=== PATIENT | male | born 1980 ===

== ENCOUNTER 2023-03-22 18:54 | Emergency (ER) | payer SELFPAY ==
--- NOTE | 2023-03-22 19:08 | PC.NURSE ---
Patient reports he lives in [place], someone found him passed out on the ground and was brought to the hospital. Reports he had a heart attack, possibly had an external pacer and requiring PICC line. Patient is a poor historian and stated he left [facility] because they weren't treating me right. Educated patient that this hospital does not have cardiology capabilities and would require a transfer to higher level of care should he need it. Woman who was with patient said we have to leave and stated they were going to [facility]. Notified off going and on coming charge nurse. Unable to finish triage or get vitals. Patient had a EMS EKG with torsades that appeared to have a shock converting to another rhythm. Patient left via wheelchair.
== END 2023-03-22 19:11 | disposition left against medical advice (07) ==
PROVIDERS: Emergency Provider Emergency Medicine
DX: R07.9 Chest pain, unspecified (principal)
CPT/HCPCS: 99281